=== PATIENT | female | born 1980 | race Caucasian/White ===

== ENCOUNTER 2018-08-17 09:06 | Emergency (ER) | payer MEDICAID ==
[~2018-08-17] VITALS: Ht 160 cm; Wt 81.7 kg
[2018-08-17] MEDS ORDERED: LATUDA20 MG PO (09:29)
[2018-08-17] MEDS ORDERED: GABAPENTIN300 MG PO (09:30)
== END 2018-08-17 09:58 | disposition home or self-care (01) ==
LOC: ED 09:06
DX: R35.0 Frequency of micturition (principal)